=== PATIENT | male | born 1995 | race Caucasian/White ===

== ENCOUNTER 2021-04-21 04:46 | Emergency (ER) | payer SELFPAY ==
[~2021-04-21] VITALS: Ht 180.3 cm; Wt 97.2 kg
[2021-04-21 05:38] LABS: BASO % 0.4 % (0.0-1.0); EOS # 0.1 10^3/uL (0.0-0.5); EOS % 0.7 % (0.0-3.0); HEMATOCRIT 42.5 % (42.0-52.0); HEMOGLOBIN 14.8 g/dl (13.5-17.5); LYMPH # 1.4 10^3/uL (1.5-5.0); LYMPH % 14.1 % (24.0-44.0); MEAN CORPUSCULAR HGB CONC 34.8 g/dl (32.0-36.5); MEAN CORPUSCULAR VOLUME 94.7 fl (80.0-96.0); MONO # 0.6 10^3/uL (0.0-0.8); MONO % 6.1 % (2.0-8.0); NEUTROPHILS # 7.9 10^3/uL (1.5-8.5); NEUTROPHILS % 78.4 % (36.0-66.0); PLATELET COUNT, AUTOMATED 182 10^3/uL (150-450); RED BLOOD COUNT 4.49 10^6/uL (4.30-6.10); WHITE BLOOD COUNT 10.1 10^3/uL (4.0-10.0)
[2021-04-21 06:19] LABS: ALBUMIN 3.8 GM/DL (3.2-5.2); ALT/SGPT 42 U/L (12-78); BILIRUBIN,DIRECT 0.1 MG/DL (0.0-0.2); BILIRUBIN,TOTAL 0.5 MG/DL (0.2-1.0); BLOOD UREA NITROGEN 12 MG/DL (7-18); CALCIUM LEVEL 9.4 MG/DL (8.5-10.1); CARBON DIOXIDE LEVEL 28 MEQ/L (21-32); CHLORIDE LEVEL 104 MEQ/L (98-107); CREATININE FOR GFR 1.09 MG/DL (0.70-1.30); GLOMERULAR FILTRATION RATE > 60.0 (>60); GLUCOSE, FASTING 114 MG/DL (70-100); LIPASE 168 U/L (73-393); POTASSIUM SERUM 4.4 MEQ/L (3.5-5.1); SODIUM LEVEL 140 MEQ/L (136-145)
[2021-04-21] MEDS ORDERED: NS 1,000 ML IV ONE (07:30)
[2021-04-21] MEDS ORDERED: KETOROLAC 30 MG/ML 1ML VIAL IV ONE (07:30)
--- NOTE | 2021-04-21 08:41 | REP ---
INDICATION: ro free air, severe epigastric pain. COMPARISON: None. TECHNIQUE: PA chest with two-view abdomen FINDINGS: PA chest: The lungs are well inflated and clear. The heart mediastinal and hilar contours are normal. The aorta and airway are intact. The bony thorax is unremarkable. There is no free air under the diaphragm. Two-view abdomen: Scattered stool and gas throughout abdominal portion of colon without dilated bowel loops, air-fluid levels, masses or free air. No abnormal calcifications. Visualized bones show mild levoconvex curve of the lumbar spine centered at L2-3. Evidence of prior right hip surgery. IMPRESSION: 1. Nonspecific gas pattern without obstruction, mass, free air or abnormal calcification. 2. Prior right hip surgery, minor levoconvex curve lumbar spine. 3. No acute cardiopulmonary change. <Electronically signed by Trent Parish > 04/21/21 [id number]
--- NOTE | 2021-04-21 08:43 | REP ---
INDICATION: severe upper abd pain. COMPARISON: None. TECHNIQUE: Real-time sonographic evaluation of right upper quadrant performed. FINDINGS: Multiple nonmobile gallstones are seen in the neck of the gallbladder. The largest is 1.8 cm in maximum diameter. Intraluminal sludge is also noted. Gallbladder wall is at the upper limits of normal in thickness at 3 mm. Patient is tender at the site of the gallbladder.. There is no intrahepatic or extrahepatic biliary dilatation, common bile duct measures 4 mm in maximum diameter. The liver demonstrates homogeneous echotexture with no gross mass. Pancreas is not optimally visualized due to overlying bowel gas, the visualized portions are grossly unremarkable. The right kidney demonstrates no hydronephrosis, with a normal size of 11.8 cm in length. No free fluid is seen. IMPRESSION: Multiple nonmobile stones in the neck of the gallbladder, the largest 1.8 cm in maximum diameter. Sludge is also seen in the gallbladder lumen. Gallbladder wall upper limits of normal in thickness. The patient is tender at the site of the gallbladder. Cholecystitis is not excluded. There is no evidence of biliary dilatation or free fluid. <Electronically signed by De Valiente > 04/21/21 [id number]
[2021-04-21 10:21] VITALS: BP 146/77
--- NOTE | 2021-04-22 21:15 | ECGEPIP ---
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
== END 2021-04-21 10:22 | disposition home or self-care (01) ==
LOC: M ED 04:46
DX: K80.50 Calculus of bile duct without cholangitis or cholecystitis without obstruction (principal); F17.200 Nicotine dependence, unspecified, uncomplicated
CPT/HCPCS: 74021; 76705; 80048; 80076; 83690; 85025; 93005; 96361; 96374; 99284; J1885

== ENCOUNTER → 2021-06-14 | Outpatient (CLI) | payer SELFPAY | LOC: M LABSMTC 09:21 | PROVIDERS: ATTEND Anesthesiology | DX: Z01.812 Encounter for preprocedural laboratory examination (principal); Z20.822 Contact with and (suspected) exposure to COVID-19 ==

== ENCOUNTER 2021-06-19 08:44 | Day surgery (SDC) | payer BC ==
[~2021-06-19] VITALS: Ht 175.3 cm; Wt 92.6 kg
[~2021-06-19 08:44] MED LIST: LR 1,000 ML IV ONE
[2021-06-19] MEDS ORDERED: dexameTHASONE 4 MG/ML 1ML VIAL (J1100 PER 1MG) As Ordered ONE (09:30)
[2021-06-19] MEDS ORDERED: SUGAMMADEX SODIUM 500 MG/5 ML VIAL (BRIDION) As Ordered ONE (09:30)
[2021-06-19] MEDS ORDERED: ROCURONIUM BROMIDE 50 MG/5 ML VIAL As Ordered ONE (09:30)
[2021-06-19] MEDS ORDERED: LIDOCAINE 2% 100MG/5ML SDV (FOR ANES.) As Ordered ONE (09:30)
[2021-06-19] MEDS ORDERED: ONDANSETRON 4MG/2ML VIAL As Ordered ONE (09:30)
[2021-06-19] MEDS ORDERED: fentaNYL 100 MCG/2 ML INJECTION (J3010) As Ordered ONE (09:30)
[2021-06-19] MEDS ORDERED: MIDAZOLAM INJ 2MG/2ML VIAL (J2250 PER 1MG) As Ordered ONE (09:30)
[2021-06-19] MEDS ORDERED: propofoL 200 MG/20 ML VIAL As Ordered ONE (09:31)
[2021-06-19] MEDS ORDERED: BUPIVACAINE/EPIN 0.25% 30 ML VIAL As Ordered ONE (10:32)
[2021-06-19] MEDS ORDERED: ACETAMINOPHEN 1000MG 100ML IV BTL (OFIRMEV) (J0131 PER 10MG) As Ordered ONE (11:00)
[2021-06-19] MEDS ORDERED: HYDROmorphone HCL 2 MG/ML 1ML VIAL As Ordered ONE (11:05)
[2021-06-19] MEDS ORDERED: LR 1,000 ML IV SCH (12:25)
[2021-06-19] MEDS ORDERED: NORCO, ANEXSIA 5/325MG TABLET (HYDROcodone/ACETAMINOPHEN) PO PRN (12:25)
[2021-06-19] MEDS ORDERED: ONDANSETRON 4MG/2ML VIAL IV PRN (12:25)
[2021-06-19] MEDS ORDERED: oxyCODONE 5MG TAB PO PRN (12:25)
[2021-06-19] MEDS ORDERED: fentaNYL 100 MCG/2 ML INJECTION (J3010) IV PRN (12:25)
[2021-06-19 13:34] VITALS: BP 149/80
--- NOTE | 2021-06-19 13:54 | RO ---
OPERATIVE NOTE DATE OF OPERATION: 06/19/2021 PREOPERATIVE DIAGNOSIS: Symptomatic cholelithiasis. POSTOPERATIVE DIAGNOSIS: Symptomatic cholelithiasis with acute cholecystitis. PROCEDURE: Robotic cholecystectomy. SURGEON: De Malcolm DO ASSIST: Sofy Grimm ANESTHESIA: General. EBL: 5 mL. COMPLICATIONS: None. INDICATIONS FOR PROCEDURE: The patient is a 25-year-old male who presents with right upper quadrant pain and was found to have symptomatic cholelithiasis. Recommendation was to proceed with robotic cholecystectomy. Risks and benefits of the procedure, not limited to but including bleeding, infection, hernia, damage to surrounding structures, and need for further surgery were discussed in detail with the patient. Informed consent was obtained and procedure was planned. PROCEDURE: The patient was brought back to operating room 7. After sufficient sedation, the abdomen was sterilely prepped and draped. Next, time out was done to confirm proper patient and proper procedure. Following that, an 8 mm incision was made in left upper quadrant, Veress needle was inserted, and the abdomen was insufflated to 15 mmHg. The Veress needle was removed and an 8 mm Optiview port was used to gain access to the abdomen. Once the abdomen was entered, three more ports were placed, two in the middle upper abdomen and one in right upper quadrant. From the console, the fundus of the gallbladder was elevated up towards the right shoulder. Cystic duct and cystic artery were carefully dissected free using combination of blunt and sharp dissection. Once they were both clearly identified, they were both doubly clipped and cut. The gallbladder was then dissected free from the gallbladder fossa using electrocautery. At the fundus of the gallbladder there was a small hole in the gallbladder that was draining some purulent fluid from it. Because of that, once the gallbladder was removed, it was placed inside of a 5 mm Endo Catch bag, and brought out through the right lateral port site. 19-Spanish Tez drain was then placed in through the right lateral port site and placed in the gallbladder fossa and sutured in place to the skin with 2-0 silk. The abdomen was desufflated. The skin incisions were closed with 4-0 Vicryl subcuticular sutures. The abdomen was cleaned and dried. Steri-Strips, 4 x 4, and tape were applied. This ended the procedure. The patient tolerated the procedure well. Postoperatively I have added some antibiotics for him to take for a week and I will have him empty and record drain output at home. I will see him in the office in a week to remove the drain.
== END 2021-06-19 13:30 | disposition home or self-care (01) ==
LOC: M SDC 08:44
PROVIDERS: ATTEND Surgery
DX: K80.10 Calculus of gallbladder with chronic cholecystitis without obstruction (principal)
CPT/HCPCS: 47562; 88304; 88341; 88342; J0131; J1100; J1170; J2250; J2405; J3010; S2900

== ENCOUNTER → 2022-03-06 | Outpatient (CLI) | payer BC | LOC: M OUTALCOH 08:05 | PROVIDERS: ATTEND Psychiatry & Neurology Psychiatry | DX: F10.10 Alcohol abuse, uncomplicated (principal) ==

== ENCOUNTER 2022-03-27 16:00 | Outpatient (RCR) | payer BC | END 2022-03-29 | LOC: M OUTALCOH 16:00 | PROVIDERS: ATTEND Psychiatry & Neurology Psychiatry | DX: F12.10 Cannabis abuse, uncomplicated (principal); Z72.0 Tobacco use ==

== ENCOUNTER 2022-04-27 09:00 | Outpatient (RCR) | payer BC | END 2022-04-29 | LOC: M OUTALCOH 09:00 | PROVIDERS: ATTEND Psychiatry & Neurology Psychiatry | DX: F12.10 Cannabis abuse, uncomplicated (principal); Z72.0 Tobacco use ==

== ENCOUNTER → 2022-05-30 | Outpatient (RCR) | payer BC | LOC: M OUTALCOH 04-30 13:59 | PROVIDERS: ATTEND Psychiatry & Neurology Psychiatry | DX: F12.10 Cannabis abuse, uncomplicated (principal); Z72.0 Tobacco use ==